=== PATIENT | male | born 1985 | race Two or more races ===

== ENCOUNTER 2016-08-25 18:22 | Emergency (ER) | payer OTHER ==
[2016-08-25] MEDS ORDERED: AZITHROMYCIN 250 MG TABLET ONE (19:16)
[2016-08-25] MEDS ORDERED: CEFTRIAXONE SODIUM 1 G VIAL ONE (19:16)
[2016-08-25 19:29] LABS: URINE BILIRUBIN NEGATIVE (NEGATIVE); URINE BLOOD TRACE (NEGATIVE); URINE GLUCOSE (UA) NEGATIVE (NEGATIVE); URINE LEUKOCYTE ESTERASE NEGATIVE (NEGATIVE); URINE NITRITE NEGATIVE (NEGATIVE); URINE PROTEIN NEGATIVE (NEGATIVE); URINE UROBILINOGEN NORMAL (0-1 mg/dl)
[2016-08-25 19:31] LABS: URINE APPEARANCE CLEAR; URINE COLOR YELLOW
[2016-08-28 14:17] LABS: CHLAMYDIA BD Negative (Negative); N.GONORRHOEAE BD Negative (Negative); SOURCE Urine (())
== END 2016-08-25 19:49 | disposition home or self-care (01) ==
LOC: ED 18:22
DX: N34.2 Other urethritis (principal)
CPT/HCPCS: 87491; 87591; 81003; 99283 ×2; 96372; J0696; A9270